=== PATIENT | male | born 1985 | race Caucasian/White ===

== ENCOUNTER 2024-11-03 19:08 | Emergency (ER) | payer OTHER ==
[~2024-11-03] VITALS: Ht 172.7 cm; Wt 68.0 kg
[2024-11-03 19:12] VITALS: BP 136/95
== END 2024-11-03 19:14 | disposition home or self-care (01) ==
LOC: ER 19:08
DX: T16.2XXA Foreign body in left ear, initial encounter (principal); W44.8XXA Other foreign body entering into or through a natural orifice, initial encounter
CPT/HCPCS: 69200; 99282-25